=== PATIENT | female | born 1980 | race Caucasian/White ===

== ENCOUNTER → 2017-02-01 | Outpatient (CLI) | payer MEDICARE | LOC: LAB 19:05 | DX: F11.20 Opioid dependence, uncomplicated (principal) | CPT/HCPCS: 80307 ==

== ENCOUNTER → 2017-02-23 | Outpatient (CLI) | payer MEDICARE | LOC: LAB 15:48 | DX: F11.20 Opioid dependence, uncomplicated (principal) | CPT/HCPCS: 36415; 80307 ==

== ENCOUNTER → 2017-03-27 | Outpatient (CLI) | payer MEDICARE | LOC: LAB 20:36 | DX: F11.20 Opioid dependence, uncomplicated (principal) | CPT/HCPCS: 80307 ==

== ENCOUNTER → 2017-04-17 | Outpatient (CLI) | payer MEDICARE | LOC: LAB 20:19 | DX: F11.20 Opioid dependence, uncomplicated (principal) | CPT/HCPCS: 80307 ==

== ENCOUNTER → 2017-07-17 | Outpatient (CLI) | payer MEDICARE | LOC: LAB 18:45 | DX: F11.20 Opioid dependence, uncomplicated (principal); M79.7 Fibromyalgia | CPT/HCPCS: 36415; 80307; 86039; 86235; 86431 ==

== ENCOUNTER 2020-11-07 00:51 | Emergency (ER) | payer MEDICARE, OTHER ==
[2020-11-07 01:41] LABS: HEMOGLOBIN 11.8 gm/dl (12.3-15.3); RED BLOOD COUNT 3.99 M/UL (4.00-5.10); WHITE BLOOD COUNT 7.2 K/UL (4.5-11.0)
[2020-11-07 02:27] LABS: BUN/CREATININE RATIO 29 (0-10)
[2020-11-07] MEDS ORDERED: BENADRYL 50MG C50 MG PO (02:49)
[2020-11-07] MEDS ORDERED: PREDNISONE 50 M50 MG PO (02:49)
[2020-11-07] MEDS ORDERED: PEPCID20 MG PO (02:49)
[2020-11-07] MEDS ORDERED: ELIMITE 5% CREA60 GM TOP (02:49)
== END 2020-11-07 03:38 | disposition home or self-care (01) ==
LOC: ER1 00:51
PROVIDERS: Physician Assistant
DX: T78.40XA Allergy, unspecified, initial encounter (principal); Z87.891 Personal history of nicotine dependence; Z88.6 Allergy status to analgesic agent
CPT/HCPCS: 71045; 80053; 85025; 93005; 96365; 96375; 99283; J1200; J2930

== ENCOUNTER → 2021-03-10 | Outpatient (CLI) | payer MEDICARE, OTHER ==
[~2021-03-10] MED LIST: BENADRYL 50MG C50 MG PO; ELIMITE 5% CREA60 GM TOP; PEPCID20 MG PO; PREDNISONE 50 M50 MG PO
[2021-03-10 16:10] LABS: HEMOGLOBIN 10.5 gm/dl (12.3-15.3); RED BLOOD COUNT 3.59 M/UL (4.00-5.10); WHITE BLOOD COUNT 7.9 K/UL (4.5-11.0)
[2021-03-10 16:36] LABS: BUN/CREATININE RATIO 30 (0-10)
== END ==
LOC: LAB 15:08
PROVIDERS: Physician Assistant
DX: R06.02 Shortness of breath (principal); E55.9 Vitamin D deficiency, unspecified; R60.9 Edema, unspecified; E16.0 Drug-induced hypoglycemia without coma; Z79.899 Other long term (current) drug therapy
CPT/HCPCS: 36415; 71046; 80048; 80061; 80076; 82607; 84443; 85025

== ENCOUNTER → 2022-02-17 | Outpatient (CLI) | payer MEDICARE, OTHER ==
[2022-02-20 10:09] LABS: AMPHETAMINES, URINE Negative ng/mL (Cutoff=1000); BARBITURATE Negative ng/mL (Cutoff=200); BENZODIAZEPINES Negative ng/mL (Cutoff=200); CANNABINOIDS Negative ng/mL (Cutoff=20); COCAINE (METABOLITE) Negative ng/mL (Cutoff=300); MEPERIDINE Negative ng/mL (Cutoff=200); METHADONE Negative ng/mL (Cutoff=300); OPIATES Negative ng/mL (Cutoff=300); PHENCYCLIDINE Negative ng/mL (Cutoff=25); PROPOXYPHENE Negative ng/mL (Cutoff=300)
== END ==
LOC: LAB 17:48
PROVIDERS: Psychiatry & Neurology Psychiatry
DX: F11.20 Opioid dependence, uncomplicated (principal); Z51.81 Encounter for therapeutic drug level monitoring
CPT/HCPCS: 80307